=== PATIENT | female | born 1980 | race Caucasian/White ===

== ENCOUNTER 2017-03-19 15:29 | Emergency (ER) | payer MEDICAID ==
[~2017-03-19] VITALS: Ht 172.7 cm; Wt 145.1 kg
[2017-03-19 16:15] VITALS: BP 115/95
[2017-03-19] MEDS ORDERED: BACITRACIN TOP OINT 1 UD PKG TOP ONE (16:30)
[2017-03-19] MEDS ORDERED: LIDOCAINE 1% HCL (LOCAL ANESTH.) INJ 20ML MDV IJ ONE ×2 (16:30)
[2017-03-19] MEDS ORDERED: TETANUS-DIPTH-ACEL PERTUSSIS 0.5ML SYRG IM ONE (17:00)
[2017-03-19] MEDS ORDERED: HYDROcodone-ACET 10/325MG TAB PO ONE (17:00)
== END 2017-03-19 17:10 | disposition home or self-care (01) ==
LOC: ER 15:31
DX: S61.307A Unspecified open wound of left little finger with damage to nail, initial encounter (principal); J45.909 Unspecified asthma, uncomplicated; I10 Essential (primary) hypertension; Z88.1 Allergy status to other antibiotic agents; Z87.891 Personal history of nicotine dependence; W23.0XXA Caught, crushed, jammed, or pinched between moving objects, initial encounter; Y93.89 Activity, other specified; Y99.8 Other external cause status; Y92.89 Other specified places as the place of occurrence of the external cause
CPT/HCPCS: 11730; 73130; 90471; 90715; 99284; J2001

== ENCOUNTER 2018-06-11 21:46 | Emergency (ER) | payer SELFPAY ==
[~2018-06-11] VITALS: Ht 172.7 cm; Wt 145.1 kg
[2018-06-11 22:03] VITALS: BP 132/81
[2018-06-11 22:34] LABS: Basophils # (auto) 0.1 uL; Basophils % (auto) 0.7 % (0.0-2.0); Eosinophils # (auto) 0.1 uL; Eosinophils % (auto) 1.8 % (0.0-7.0); Hematocrit 37.2 % (36.0-46.0); Lymphocytes # (auto) 2.5 uL; Lymphocytes % (auto) 34.6 % (10.0-50.0); Mean Corpuscular Hemoglobin 33.8 pg (28.0-32.0); Mean Corpuscular Hgb Conc. 35.1 g/dL (32.0-36.0); Mean Corpuscular Volume 96.4 fL (80.0-100.0); Monocytes # (auto) 0.4 uL; Monocytes % (auto) 5.4 % (0.0-12.0); Neutrophils # (auto) 4.1 uL; Neutrophils % (auto) 57.5 % (37.0-80.0); Nucleated Red Blood Cells % 0.1 %; Platelet Count (auto) 173 10^3/uL (140-450); Red Blood Cells 3.85 10^6/uL (4.0-5.20); Red Cell Distribution Width 13.5 % (11.8-14.3); White Blood Cell 7.2 10^3/uL (4.4-10.8)
[2018-06-11 22:57] LABS: Alanine Aminotransferase 19 U/L (13-56); Albumin 3.3 g/dL (3.4-5.0); Alkaline Phosphatase 60 U/L (45-117); Anion Gap 7 (5-15); Aspartate Aminotransferase 8 U/L (15-37); BUN/Creatinine Ratio 17.5; Bilirubin, Total 0.4 mg/dL (0.2-1.0); Blood Urea Nitrogen 14 mg/dL (7-18); Calcium 7.8 mg/dL (8.5-10.1); Carbon Dioxide 27 mmol/L (21-32); Chloride 109 mmol/L (98-107); GFR African American 104 mL/min; GFR Non-African American 86 mL/min; Glucose 100 mg/dL (74-106); Potassium 3.4 mmol/L (3.5-5.1); Sodium 143 mmol/L (136-145); Total Protein 7.3 g/dL (6.4-8.2)
== END 2018-06-12 04:00 | disposition left against medical advice (07) ==
LOC: ER 21:46 → MERGE 21:46 → ER 06-12 04:00
DX: R07.9 Chest pain, unspecified (principal); Z53.21 Procedure and treatment not carried out due to patient leaving prior to being seen by health care provider
CPT/HCPCS: 36415; 71045; 80053; 84484; 85025; 93005

== ENCOUNTER 2018-07-09 10:57 | Emergency (ER) | payer MEDICAID, OTHER ==
[~2018-07-09] VITALS: Ht 172.7 cm; Wt 150.6 kg
[2018-07-09 11:14] VITALS: BP 108/69
[2018-07-09 12:21] LABS: Urine Bacteria FEW /hpf (None Seen); Urine Blood 1+ /uL (Negative); Urine Specific Gravity 1.007 (1.001-1.035); Urine WBC 1 /hpf (0 - 5)
== END 2018-07-09 14:17 | disposition home or self-care (01) ==
LOC: ER 11:00
DX: N39.0 Urinary tract infection, site not specified (principal); M79.641 Pain in right hand; M79.604 Pain in right leg; I10 Essential (primary) hypertension; J45.909 Unspecified asthma, uncomplicated; Z88.8 Allergy status to other drugs, medicaments and biological substances; Z87.891 Personal history of nicotine dependence
CPT/HCPCS: 81001; 81025; 93971

== ENCOUNTER 2019-02-11 04:03 | Emergency (ER) | payer MEDICAID ==
[~2019-02-11] VITALS: Ht 172.7 cm; Wt 146.5 kg
[2019-02-11 08:00] VITALS: BP 108/65
== END 2019-02-11 09:04 | disposition home or self-care (01) ==
LOC: ER 04:07
DX: T44.7X1A Poisoning by beta-adrenoreceptor antagonists, accidental (unintentional), initial encounter (principal); I10 Essential (primary) hypertension; J45.909 Unspecified asthma, uncomplicated; Z87.891 Personal history of nicotine dependence

== ENCOUNTER 2020-04-21 20:01 | Emergency (ER) | payer MEDICAID ==
[~2020-04-21] VITALS: Ht 172.7 cm; Wt 140.6 kg
[2020-04-21 21:35] LABS: Urine Bacteria NONE SEEN /hpf (None Seen); Urine Blood Negative /uL (Negative); Urine Mucus FEW (None Seen); Urine Specific Gravity 1.025 (1.001-1.035); Urine WBC 2 /hpf (0 - 5)
[2020-04-21 21:39] LABS: Basophils # (auto) 0.1 10 ^3/uL (0-0.2); Basophils % (auto) 0.6 % (0.0-2.0); Eosinophils # (auto) 0.1 10 ^3/uL (0-0.8); Eosinophils % (auto) 1.2 % (0.0-7.0); Hematocrit 37.1 % (36.0-46.0); Hemoglobin 12.9 g/dL (12.2-16.2); Lymphocytes # (auto) 2.4 10 ^3/uL (0.4-5.4); Lymphocytes % (auto) 29.8 % (10.0-50.0); Mean Corpuscular Hemoglobin 33.4 pg (28.0-32.0); Mean Corpuscular Hgb Conc. 34.9 g/dL (32.0-36.0); Mean Corpuscular Volume 95.8 fL (80.0-100.0); Monocytes # (auto) 0.5 10 ^3/uL (0-1.3); Monocytes % (auto) 6.5 % (0.0-12.0); Neutrophils % (auto) 61.9 % (37.0-80.0); Nucleated Red Blood Cells % 0.1 %; Platelet Count (auto) 185 10^3/uL (140-450); Red Blood Cells 3.87 10^6/uL (4.0-5.20); Red Cell Distribution Width 12.6 % (11.8-14.3)
[2020-04-21 21:46] LABS: Albumin 3.4 g/dL (3.4-5.0); Calcium 8.4 mg/dL (8.5-10.1); Potassium 3.4 mmol/L (3.5-5.1)
[2020-04-21 21:50] LABS: Bilirubin, Total 0.3 mg/dL (0.2-1.0); Total Protein 7.3 g/dL (6.4-8.2)
[2020-04-22 04:01] LABS: INR 1.08 (0.9-1.15); Partial Thromboplastin Time 26.8 sec (23.64-32.05)
[2020-04-22] MEDS ORDERED: IOHEXOL 350 MG/ML 100ML IJ ONE (04:20)
[2020-04-22 07:15] VITALS: BP 162/58
== END 2020-04-22 07:54 | disposition home or self-care (01) ==
LOC: ER 20:03
DX: R07.89 Other chest pain (principal); N39.0 Urinary tract infection, site not specified; M48.04 Spinal stenosis, thoracic region; I10 Essential (primary) hypertension; J45.909 Unspecified asthma, uncomplicated; F17.210 Nicotine dependence, cigarettes, uncomplicated; Z88.8 Allergy status to other drugs, medicaments and biological substances
CPT/HCPCS: 36415; 71046; 71275; 80053; 81001; 81025; 84484; 85025; 85379; 85610; 85730; 99285; Q9967

== ENCOUNTER → 2020-10-22 | Emergency (ER) | payer MEDICAID ==
[~2020-10-22] VITALS: Ht 172.7 cm; Wt 144.7 kg
[2020-10-22 20:51] LABS: Basophils # (auto) 0 10 ^3/uL (0-0.2); Basophils % (auto) 0.3 % (0.0-2.0); Eosinophils # (auto) 0.1 10 ^3/uL (0-0.8); Eosinophils % (auto) 1.2 % (0.0-7.0); Hematocrit 37.9 % (36.0-46.0); Hemoglobin 13.3 g/dL (12.2-16.2); Lymphocytes # (auto) 2.6 10 ^3/uL (0.4-5.4); Lymphocytes % (auto) 28.5 % (10.0-50.0); Mean Corpuscular Hemoglobin 33.9 pg (28.0-32.0); Mean Corpuscular Hgb Conc. 35.1 g/dL (32.0-36.0); Mean Corpuscular Volume 96.6 fL (80.0-100.0); Monocytes # (auto) 0.4 10 ^3/uL (0-1.3); Monocytes % (auto) 4.7 % (0.0-12.0); Neutrophils # (auto) 5.9 10 ^3/uL (1.6-8.6); Neutrophils % (auto) 65.3 % (37.0-80.0); Nucleated Red Blood Cells % 0.1 %; Platelet Count (auto) 156 10^3/uL (140-450); Red Blood Cells 3.93 10^6/uL (4.0-5.20); Red Cell Distribution Width 12.8 % (11.8-14.3)
[2020-10-22 23:18] LABS: Albumin 3.4 g/dL (3.4-5.0); Calcium 9.3 mg/dL (8.5-10.1)
[2020-10-22 23:21] LABS: Bilirubin, Total 0.3 mg/dL (0.2-1.0); Total Protein 7.5 g/dL (6.4-8.2)
[2020-10-23 00:34] VITALS: BP 132/67
== END | disposition home or self-care (01) ==
LOC: ER 17:11
DX: M79.662 Pain in left lower leg (principal); J45.909 Unspecified asthma, uncomplicated; I10 Essential (primary) hypertension; Z90.49 Acquired absence of other specified parts of digestive tract; Z87.891 Personal history of nicotine dependence
CPT/HCPCS: 36415; 80053; 85025; 93971

== ENCOUNTER 2021-02-26 18:32 | Emergency (ER) | payer MEDICAID ==
[~2021-02-26] VITALS: Ht 172.7 cm; Wt 142.9 kg
[2021-02-26 20:44] LABS: Basophils # (auto) 0 10 ^3/uL (0-0.2); Basophils % (auto) 0.4 % (0.0-2.0); Eosinophils # (auto) 0.1 10 ^3/uL (0-0.8); Eosinophils % (auto) 1.2 % (0.0-7.0); Hematocrit 37.8 % (36.0-46.0); Lymphocytes # (auto) 1.9 10 ^3/uL (0.4-5.4); Lymphocytes % (auto) 23.9 % (10.0-50.0); Mean Corpuscular Hemoglobin 33.4 pg (28.0-32.0); Mean Corpuscular Hgb Conc. 34.5 g/dL (32.0-36.0); Mean Corpuscular Volume 96.9 fL (80.0-100.0); Monocytes # (auto) 0.4 10 ^3/uL (0-1.3); Monocytes % (auto) 5.4 % (0.0-12.0); Neutrophils # (auto) 5.5 10 ^3/uL (1.6-8.6); Neutrophils % (auto) 69.1 % (37.0-80.0); Platelet Count (auto) 140 10^3/uL (140-450); Red Cell Distribution Width 12.9 % (11.8-14.3)
[2021-02-26 20:59] LABS: INR 1.08 (0.9-1.15); Partial Thromboplastin Time 24.5 sec (23.0-31.2)
[2021-02-26 21:00] LABS: Calcium 8.1 mg/dL (8.5-10.1); Chloride 107 mmol/L (98-107); Potassium 3.6 mmol/L (3.5-5.1); Sodium 142 mmol/L (136-145)
[2021-02-26 21:09] LABS: Alanine Aminotransferase 15 U/L (13-56); Albumin 3.1 g/dL (3.4-5.0); Alkaline Phosphatase 56 U/L (45-117); Anion Gap 7 (5-15); Aspartate Aminotransferase 11 U/L (15-37); BUN/Creatinine Ratio 12.7; Bilirubin, Total 0.4 mg/dL (0.2-1.0); Blood Urea Nitrogen 10 mg/dL (7-18); Carbon Dioxide 28 mmol/L (21-32); GFR African American 104 mL/min; GFR Non-African American 86 mL/min; Glucose 76 mg/dL (74-106); Total Protein 6.7 g/dL (6.4-8.2)
[2021-02-26] MEDS ORDERED: IOHEXOL 350 MG/ML 100ML IJ ONE (22:42)
[2021-02-27 00:10] VITALS: BP 121/55
== END 2021-02-27 01:00 | disposition home or self-care (01) ==
LOC: ER 18:32
DX: R07.89 Other chest pain (principal); K21.9 Gastro-esophageal reflux disease without esophagitis; R00.2 Palpitations; I10 Essential (primary) hypertension; J45.909 Unspecified asthma, uncomplicated; E66.01 Morbid (severe) obesity due to excess calories; Z68.42 Body mass index [BMI] 45.0-49.9, adult; Z88.8 Allergy status to other drugs, medicaments and biological substances; Z90.49 Acquired absence of other specified parts of digestive tract; Z98.890 Other specified postprocedural states; Z20.822 Contact with and (suspected) exposure to COVID-19
CPT/HCPCS: 36415; 71045; 71275; 80053; 82728; 83880; 84484; 84702; 85025; 85379; 85610; 85730; 87426; 93005; 99285; Q9967

== ENCOUNTER 2021-04-20 20:58 | Emergency (ER) | payer MEDICAID ==
[~2021-04-20] VITALS: Ht 172.7 cm; Wt 149.7 kg
[2021-04-21] MEDS ORDERED: ACETAMINOPHEN 325 MG TAB PO ONE (03:30)
[2021-04-21] MEDS ORDERED: METOCLOPRAMIDE HCL 5MG/ml INJ 2ml VIAL IV ONE (03:30)
[2021-04-21] MEDS ORDERED: KETOROLAC TROMETH 30 MG/ML 1ML VIAL IV ONE (03:30)
[2021-04-21 06:20] VITALS: BP 109/55
== END 2021-04-21 06:25 | disposition home or self-care (01) ==
LOC: ER 20:58
DX: R51.9 Headache, unspecified (principal); M54.2 Cervicalgia; J45.909 Unspecified asthma, uncomplicated; I10 Essential (primary) hypertension; Z90.49 Acquired absence of other specified parts of digestive tract
CPT/HCPCS: 70450; 72125